=== PATIENT | male | born 1975 | race Caucasian/White ===

== ENCOUNTER 2022-05-13 00:32 | Emergency (ER) | payer BC, OTHER ==
--- NOTE | 2022-05-13 00:39 | ERPHSYRPT ---
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 He did not suffer any acute traumatic injury or fall. However he is concerned because he does smoke cigarettes and the area that he is having pain in that is getting worse is in the thoracolumbar spine region. A family member was recently diagnosed with cancer and he was somewhat concerned because the type of pain that he had is similar to his. He has not had a fever he denies chest pain. He said no nausea vomiting or diarrhea symptoms. He has had no urinary incontinence. He has no loss of bowel control. He has no numbness in his feet. Method of Injury: other (No acute traumatic injury or fall) Quality: sharp, aching Back Pain Location: T-spine, lumbar spine, paraspinous muscles Severity of Pain-Max: moderate Severity of Pain-Current: moderate Modifying Factors: Improves With: movement Associated Symptoms: lower back pain, muscle spasms, No urinary incontinence, No loss of bowel control, No constipation, No numbness in legs/feet Previous symptoms: same symptoms as today (But worsening) Allergies/Adverse Reactions: No Known Drug Allergies Allergy (Verified 05/13/22 00:33) Home Medications: No Home Meds [No Home Meds] 1 [facility]D 09/05/14 [History] Hx Tetanus, Diphtheria Vaccination/Date Given: Yes Hx Influenza Vaccination/Date Given: No Hx Pneumococcal Vaccination/Date Given: No Travel Risk - International Travel Have you traveled outside of the country in past 3 weeks: No - Coronavirus Screening Are you exhibiting any of the following symptoms?: No Close contact with a COVID-19 positive Pt in past 14-21 Days: No - Review of Systems Constitutional: No Symptoms Eyes: No Symptoms Ears, Nose, & Throat: No Symptoms Respiratory: No Symptoms Cardiac: No Symptoms Abdominal/Gastrointestinal: No Symptoms Genitourinary Symptoms: No Symptoms Musculoskeletal: Back Pain, No Deformity, No Fall, No Injury Skin: No Symptoms Neurological: No Symptoms Psychological: No Symptoms Endocrine: No Symptoms Hematologic/Lymphatic: No Symptoms Immunological/Allergic: No Symptoms All Other Systems: Reviewed and Negative - Past Medical History Pertinent Past Medical History: No Other Medical History: RSD - Past Surgical History Past Surgical History: Yes Gastrointestinal: Appendectomy, Cholecystectomy Musculoskeletal: Orthopedic Surgery Other Surgical History: BILATERAL FEET, TUBES IN EARS - Social History Smoking Status: Current every day smoker How long have you smoked: 20 YEARS Exposure to second hand smoke: Yes Drug Use: none Patient Lives Alone: No - Nursing Vital Signs Nursing Vital Signs: Initial Vital Signs Temperature 98.7 F 05/13/22 00:32 Pulse Rate 97 H 05/13/22 00:32 Respiratory Rate 14 05/13/22 00:32 Blood Pressure 144/105 05/13/22 00:32 O2 Sat by Pulse Oximetry 98 05/13/22 00:32 Pain Scale Pain Intensity [Left Posterior 4 Back] Pain Intensity 4 - Physical Exam General Appearance: no apparent distress, alert, anxiety Eye Exam: PERRL/EOMI, eyes nml inspection Ears, Nose, Throat Exam: normal ENT inspection, moist mucous membranes Neck Exam: normal inspection, non-tender, supple, full range of motion Respiratory Exam: normal breath sounds, lungs clear, airway intact, No chest tenderness, No respiratory distress Cardiovascular Exam: regular rate/rhythm, normal heart sounds, normal peripheral pulses Gastrointestinal Exam: soft, normal bowel sounds, No tenderness Rectal Exam: not done Back Exam: normal inspection, normal range of motion, muscle spasm (Bilateral distribution of thoracal lumbar level paraspinous muscle tenderness with spasm), No vertebral tenderness Extremity Exam: normal inspection, normal range of motion, pelvis stable Neurologic Exam: alert, oriented x 3, cooperative, director data analytics II-XII nml as tested, normal mood/affect, nml cerebellar function, nml station & gait, sensation nml Skin Exam: normal color, warm, dry Lymphatic Exam: No adenopathy SpO2 Interpretation: normal O2 Delivery: Room Air - Course Nursing assessment & vital signs reviewed: Yes Ordered Tests: Active Orders 24 hr Category Date Time Status LUMBAR SPINE W/O [CT] Stat Exams 05/13/22 01:15 Taken THORACIC SPINE W/O CONTRAST [CT] Stat Exams 05/13/22 01:15 Taken Medication Summary Discontinued Medications Generic Name Dose Route Start Last Admin Trade Name Freq PRN Reason Stop Dose Admin Methylprednisolone Sodium 0 mg 05/13/22 02:40 05/13/22 02:49 Succinate 125 mg/ Sterile IM 05/13/22 02:41 125 mg Water 2 ml STAT ONE Administration Methylprednisolone Sodium Succinate Confirm 05/13/22 02:49 Methylprednis Sod Succ 125 Mg/2 Ml Vial Administered 05/13/22 02:50 Dose 125 mg .ROUTE .STK-MED ONE Orphenadrine Citrate 100 mg 05/13/22 02:39 05/13/22 02:50 Orphenadrine Citrate 100 Mg Er Tab PO 05/13/22 02:40 100 mg STAT ONE Administration Orphenadrine Citrate Confirm 05/13/22 02:48 Orphenadrine Citrate 100 Mg Er Tab Administered 05/13/22 02:49 Dose 100 mg PO .STK-MED ONE Oxycodone/Acetaminophen 1 tab 05/13/22 02:39 05/13/22 02:50 Oxycodone Hcl/Apap 5 Mg/325 Mg Tablet PO 05/13/22 02:40 1 tab STAT STA Administration Oxycodone/Acetaminophen Confirm 05/13/22 02:49 Oxycodone Hcl/Apap 5 Mg/325 Mg Tablet Administered 05/13/22 02:50 Dose 1 tab .ROUTE .STK-MED ONE Sterile Water Confirm 05/13/22 02:48 Water For Injection,Sterile 10 Ml Vial Administered 05/13/22 02:49 Dose 10 ml IJ .STK-MED ONE - Progress Progress: improved, pain not gone completely Progress Note: 05/13/22 02:36 This patient's medical issue is 1 of moderate complexity. The level of complexity and the work-up performed was based on review of the patient's past medical history, review of the patient's medication list, review of the patient's drug allergy list, history of present illness and physical findings on examination. The work-up includes CAT scan of the thoracic spine and CAT scan of the lumbar spine. We are awaiting the results of these studies and I will review the radiologist interpretation of them. Patient will receive an injection of Solu-Medrol intramuscularly, Norflex intramuscularly and Percocet pain pill here in the emergency department. The discharge plan, assuming no fractures or subluxation or central spinal cord impingement, will include prescriptions being sent to his pharmacy for prednisone and Norflex orally. 05/13/22 02:58 I reviewed the results of the thoracic spine CT with the patient and his spouse. I told him that there was numerous small solid nodules of various sizes throughout the partially visualized lung and that the radiologist recommends a CT of the chest to rule in or rule out malignancy. I told him there were no acute findings of the thoracic spine. I also reviewed with them the results of the lumbar spine CT which states there is spondylotic related moderate right and and moderate to severe osseous neural foraminal narrowing at L5-S1. The radiologist recommends further evaluation with lumbar spine MRI. Counseled pt/family regarding: diagnosis, need for follow-up, rad results Medical Desision Making - Independent Historian Additional History obtained from: Spouse - Discussion of managment Reviewed:: Test results Agreed on:: Treatment plan, need for follow-up - Diagnostic Testing Diagnostic test were ordered, analyzed, and reviewed by me: Yes Radiological Interpretation: Reviewed by me - Risk of complications The pt has a mod risk of morbidity or mortality based on: Need for prescription drug management - Departure Departure Disposition: Home Clinical Impression: Thoracic spine pain, Lumbar spine pain, Spondylosis of lumbar spine, Neural foraminal stenosis of lumbar spine, Lung nodule seen on imaging study Condition: Stable Critical Care Time: No Referrals: YASMINE SOSA MD [Primary Care Provider] - Follow up/PCP as directed Instructions: Upper Back Pain Additional Instructions: Take your medication as prescribed. Follow-up with your primary care provider for further evaluation management. Including evaluating your lung nodules with a CT scan of the chest as an outpatient and lumbar spine MRI. The level of abnormality is L5-S1. Discuss smoking cessation with your primary care provider. Call them on 05/15/2022. Prescriptions: Prednisone 10 mg [Deltasone 10 mg] 10 mg PO TID #12 tablet Orphenadrine Citrate 100 mg [Norflex 100 MG Tablet] 100 mg PO BID #10 tab
[2022-05-13] MEDS ORDERED: Norflex 100 MG Tablet PO ONE ×2 (02:39→02:48)
[2022-05-13] MEDS ORDERED: PERCOCET TABLET 5/325MG PO STA (02:39)
[2022-05-13] MEDS ORDERED: solu-MEDROL 125 MG, Sterile H2O 10 ml 2 ML IM ONE ×2 (02:40)
[2022-05-13] MEDS ORDERED: Sterile H2O 10 ml IJ ONE (02:48)
[2022-05-13] MEDS ORDERED: solu-MEDROL ONE (02:49)
[2022-05-13] MEDS ORDERED: PERCOCET TABLET 5/325MG ONE (02:49)
[2022-05-13 03:04] VITALS: BP 134/98; PULSE 75; O2SAT 97
--- NOTE | 2022-05-13 08:09 | XRAY ---
Indication: Pain and cough. Multiple contiguous axial images obtained through the thoracic spine. Sagittal and coronal reformatted images obtained. Comparison: None Axial images negative for acute fracture, suspicious bony lesions, or spinal canal stenosis. Minimal multilevel anterior endplate spurring. Sagittal and coronal reformatted images demonstrates normal alignment with vertebral heights/disc spaces maintained. No acute compression fracture or subluxation. Visualized noncontrasted soft tissues demonstrates mild pulmonary emphysema. Also multiple scattered bilateral sub-5 mm indeterminant noncalcified pulmonary nodules. CT lumbar spine reported separately. Impression: 1. Multiple tiny bilateral indeterminant noncalcified pulmonary micronodules. Outside comparison studies recommended if available. If not, CT chest recommended with follow-up per Fleischner guidelines. 2. Remaining CT thoracic spine is negative. Comment: Preliminary interpretation made by C. No critical discrepancy.
--- NOTE | 2022-05-13 08:12 | XRAY ---
Indication: Pain and cough. Multiple contiguous axial images obtained through the lumbar spine. Sagittal and coronal reformatted images obtained. Comparison: None CT thoracic spine reported separately. Axial images demonstrates mild broad-based disc bulge at L4-S1 levels and L5-S1 degenerative vacuum disc phenomena. No acute fracture, suspicious bony lesions, or spinal canal stenosis. Facets are symmetric. Sagittal and coronal reformatted images demonstrates normal lumbar alignment. L5-S1 disc space loss. No compression fracture or subluxation. Visualized noncontrasted soft tissues demonstrates minimal aortoiliac calcifications. Impression: 1. L4-S1 degenerative disc disease better evaluated with outpatient MRI. 2. Incidental minimal arteriosclerotic disease. Comment: Preliminary interpretation made by [facility]. No critical discrepancy.
== END 2022-05-13 03:10 | disposition home or self-care (01) ==
LOC: ED 00:32
DX: M48.061 Spinal stenosis, lumbar region without neurogenic claudication (principal); M54.50 Low back pain, unspecified; M54.6 Pain in thoracic spine; R91.1 Solitary pulmonary nodule; Z79.52 Long term (current) use of systemic steroids; Z72.0 Tobacco use
CPT/HCPCS: 72128; 72131; 96372; 99284; J2930; A9270-GY